=== PATIENT | female | born 1990 | race Two or more races ===

== ENCOUNTER 2021-02-09 13:57 | Inpatient (IN) | payer OTHER ==
[~2021-02-09] VITALS: Ht 152.4 cm; Wt 75.6 kg
[2021-02-09 14:49] LABS: Basophils # (auto) 0.1 10 ^3/uL (0-0.2); Basophils % (auto) 0.5 % (0.0-2.0); Eosinophils # (auto) 0 10 ^3/uL (0-0.8); Eosinophils % (auto) 0.3 % (0.0-7.0); Hematocrit 35.5 % (36.0-46.0); Lymphocytes # (auto) 1.4 10 ^3/uL (0.4-5.4); Lymphocytes % (auto) 10.9 % (10.0-50.0); Mean Corpuscular Hemoglobin 30.9 pg (28.0-32.0); Mean Corpuscular Hgb Conc. 33.9 g/dL (32.0-36.0); Monocytes # (auto) 0.5 10 ^3/uL (0-1.3); Monocytes % (auto) 3.6 % (0.0-12.0); Neutrophils # (auto) 10.7 10 ^3/uL (1.6-8.6); Neutrophils % (auto) 84.7 % (37.0-80.0); Red Cell Distribution Width 12.9 % (11.8-14.3); White Blood Cell 12.6 10^3/uL (4.4-10.8)
[2021-02-09 15:05] LABS: Albumin 3.8 g/dL (3.4-5.0); BUN/Creatinine Ratio 26.2; Calcium 8.8 mg/dL (8.5-10.1)
[2021-02-09 15:07] LABS: Bilirubin, Total 0.3 mg/dL (0.2-1.0); Total Protein 6.9 g/dL (6.4-8.2)
[2021-02-09] MEDS ORDERED: SODIUM CHLORIDE 0.9% 500 ML IV ONE (16:15)
[2021-02-09] MEDS ORDERED: NEOSTIGMINE 1 MG/ML INJ (10mg/10ML VIAL) ONE (17:39)
[2021-02-09] MEDS ORDERED: ONDANSETRON HCL 4 MG/2 ML VIAL ONE (17:39)
[2021-02-09] MEDS ORDERED: HYDROmorphone HCL 2 MG/ML VL ONE (17:39)
[2021-02-09] MEDS ORDERED: ETOMIDATE (2MG/ML) 20ML VIAL IV ONE (17:39)
[2021-02-09] MEDS ORDERED: fentaNYL CITRATE 100 MCG/2 ML VL ONE (17:39)
[2021-02-09] MEDS ORDERED: MIDAZOLAM HCL 2MG/2ML 2ml VIAL (1mg/ml) ONE (17:39)
[2021-02-09] MEDS ORDERED: ROCURONIUM 10MG/ML 10ML VIAL IV ONE (17:39)
[2021-02-09 17:40] LABS: Urine Bacteria FEW /hpf (None Seen); Urine Blood Negative /uL (Negative); Urine Hyaline Cast FEW /lpf (0 - 2); Urine Mucus FEW (None Seen); Urine Specific Gravity 1.022 (1.001-1.035); Urine WBC 3 /hpf (0 - 5)
[2021-02-09] MEDS ORDERED: GLYCOPYRROLATE 0.2 MG/ML 1ML VIAL ONE (17:40)
[2021-02-09] MEDS ORDERED: ceFAZolin 1GM/50ML 100 ML IV ONE (17:45)
[2021-02-09 17:50] LABS: INR 1.06 (0.9-1.15); Partial Thromboplastin Time < 20.0 sec (23.6-33.0)
[2021-02-09] MEDS ORDERED: STERILE WATER ONE (18:01)
[2021-02-09] MEDS ORDERED: DexAMETHasone SOD PHOS 10MG/1ML VIAL INJ ONE (18:25)
[2021-02-09] MEDS ORDERED: METOCLOPRAMIDE HCL 5MG/ml INJ 2ml VIAL IV PRN (18:30)
[2021-02-09] MEDS ORDERED: MORPHINE SULFATE 4 MG/ML SYR/VIAL IV PRN (18:30)
[2021-02-09] MEDS ORDERED: HYDROmorphone HCL 2 MG/ML VL IV PRN (18:30)
[2021-02-09] MEDS ORDERED: POVIDONE IODINE 10 % TOPICAL OINT 30GM TOP ONE (18:35)
[2021-02-09] MEDS ORDERED: HYDROcodone-ACET 5/325MG TAB PO PRN (19:30)
[2021-02-09] MEDS ORDERED: ONDANSETRON HCL 4 MG/2 ML VIAL IV PRN (19:30)
[2021-02-09] MEDS: METOCLOPRAMIDE HCL 5MG/ml INJ 2ml VIAL IV SCH (20:55)
[2021-02-09] MEDS: D5W/SOD CHL 0.45%/KCL 20MEQ 1,000 ML IV SCH (20:56)
[2021-02-09 21:57] LABS: Basophils # (auto) 0 10 ^3/uL (0-0.2); Eosinophils # (auto) 0 10 ^3/uL (0-0.8); Hematocrit 31.5 % (36.0-46.0); Hemoglobin 10.7 g/dL (12.2-16.2); Lymphocytes # (auto) 0.3 10 ^3/uL (0.4-5.4); Lymphocytes % (auto) 1.8 % (10.0-50.0); Mean Corpuscular Volume 91.2 fL (80.0-100.0); Monocytes # (auto) 0.1 10 ^3/uL (0-1.3); Monocytes % (auto) 0.7 % (0.0-12.0); Neutrophils # (auto) 16.2 10 ^3/uL (1.6-8.6); Neutrophils % (auto) 97.5 % (37.0-80.0); Red Blood Cells 3.45 10^6/uL (4.0-5.20); Red Cell Distribution Width 12.9 % (11.8-14.3); White Blood Cell 16.7 10^3/uL (4.4-10.8)
[2021-02-09] MEDS: MORPHINE SULFATE INJECTION 2 MG/ML SYRG IV PRN (22:48)
[2021-02-10] MEDS ORDERED: HYDROmorphone HCL 2 MG/ML VL IV ONE
[2021-02-10] MEDS: MORPHINE SULFATE INJECTION 2 MG/ML SYRG IV PRN ×2 (03:04→08:25)
[2021-02-10 05:08] VITALS: BP 110/59
[2021-02-10] MEDS: METOCLOPRAMIDE HCL 5MG/ml INJ 2ml VIAL IV SCH ×3 (06:11→22:47)
[2021-02-10] MEDS: D5W/SOD CHL 0.45%/KCL 20MEQ 1,000 ML IV SCH ×3 (07:04→21:27)
[2021-02-10] MEDS ORDERED: ACETAMINOPHEN 500 MG TAB PO PRN (07:45)
[2021-02-10] MEDS ORDERED: BISACODYL 10 MG RECT SUPP PR PRN (07:45)
[2021-02-10] MEDS ORDERED: ONDANSETRON HCL 4 MG/2 ML VIAL IV PRN (07:45)
[2021-02-10] MEDS ORDERED: RHO (D) IMMUNE GLOBULIN 300 MCG INJ IM PRN (07:45)
[2021-02-10] MEDS ORDERED: DOCUSATE SOD 100 MG CAP PO PRN (07:45)
[2021-02-10 08:17] LABS: Basophils # (auto) 0 10 ^3/uL (0-0.2); Basophils % (auto) 0.2 % (0.0-2.0); Eosinophils # (auto) 0 10 ^3/uL (0-0.8); Hematocrit 27.7 % (36.0-46.0); Hemoglobin 9.9 g/dL (12.2-16.2); Lymphocytes # (auto) 0.9 10 ^3/uL (0.4-5.4); Lymphocytes % (auto) 8.1 % (10.0-50.0); Mean Corpuscular Hemoglobin 32.1 pg (28.0-32.0); Mean Corpuscular Hgb Conc. 35.7 g/dL (32.0-36.0); Mean Corpuscular Volume 90.1 fL (80.0-100.0); Monocytes # (auto) 0.7 10 ^3/uL (0-1.3); Monocytes % (auto) 6.3 % (0.0-12.0); Neutrophils # (auto) 9.6 10 ^3/uL (1.6-8.6); Neutrophils % (auto) 85.4 % (37.0-80.0); Red Blood Cells 3.07 10^6/uL (4.0-5.20); Red Cell Distribution Width 13.3 % (11.8-14.3); White Blood Cell 11.2 10^3/uL (4.4-10.8)
[2021-02-10] MEDS: DOCUSATE CALCIUM 240 MG CAP PO SCH (08:23)
[2021-02-10] MEDS: PANTOPRAZOLE 40 MG/10 ML VIAL INJ IV SCH (08:23)
[2021-02-10] MEDS: cefTRIAXone 1GM/50ML D5W 50 ML IV SCH (08:23)
[2021-02-10] MEDS ORDERED: KETOROLAC TROMETH 30 MG/ML 1ML VIAL IV PRN (08:45)
[2021-02-10] MEDS: SIMETHICONE 80 MG CHEWABLE TABLET PO SCH ×3 (08:48→22:47)
[2021-02-10] MEDS: HYDROcodone-ACET 5/325MG TAB PO PRN ×2 (18:10→22:48)
[2021-02-10 22:00] VITALS: BP 112/71
[2021-02-11 05:05] VITALS: BP 104/59
[2021-02-11] MEDS: HYDROcodone-ACET 5/325MG TAB PO PRN ×2 (05:26→09:44)
[2021-02-11] MEDS: METOCLOPRAMIDE HCL 5MG/ml INJ 2ml VIAL IV SCH (05:26)
[2021-02-11] MEDS: SIMETHICONE 80 MG CHEWABLE TABLET PO SCH (05:26)
[2021-02-11] MEDS ORDERED: HYDR-4902 PO (07:43)
[2021-02-11] MEDS ORDERED: DOCU-94 PO (07:43)
[2021-02-11] MEDS ORDERED: IBUP800T27 PO (07:43)
[2021-02-11] MEDS ORDERED: FER325T PO (07:51)
[2021-02-11 09:00] VITALS: BP 107/59
[2021-02-11] MEDS: cefTRIAXone 1GM/50ML D5W 50 ML IV SCH (09:24)
[2021-02-11] MEDS: PANTOPRAZOLE 40 MG/10 ML VIAL INJ IV SCH (09:25)
[2021-02-11] MEDS: DOCUSATE CALCIUM 240 MG CAP PO SCH (09:25)
[2021-02-11 11:06] VITALS: BP 107/59
[2021-02-11 13:00] VITALS: BP 110/69
== END 2021-02-11 12:30 | disposition home or self-care (01) | DRG 817 ==
LOC: ER 13:57 → OVERFLOW 17:53 → WEST WING 20:15
PROVIDERS: ADMIT Obstetrics & Gynecology Obstetrics; ATTEND Obstetrics & Gynecology Obstetrics
PROC: 0UB50ZZ Excision of Right Fallopian Tube, Open Approach (ICD-10-PCS; 2021-02-09)
PROC: 0DCW0ZZ Extirpation of Matter from Peritoneum, Open Approach (ICD-10-PCS; 2021-02-09)
PROC: 30233N1 Transfusion of Nonautologous Red Blood Cells into Peripheral Vein, Percutaneous Approach (ICD-10-PCS; 2021-02-09)
PROC: 10T20ZZ Resection of Products of Conception, Ectopic, Open Approach (ICD-10-PCS; principal; 2021-02-09 18:04)
DX: O00.101 Right tubal pregnancy without intrauterine pregnancy (principal); K66.1 Hemoperitoneum; O08.89 Other complications following an ectopic and molar pregnancy; Z20.822 Contact with and (suspected) exposure to COVID-19; Z3A.11 11 weeks gestation of pregnancy
CPT/HCPCS: 36415; 76801; 76817; 80053; 81001; 84702; 85025; 85610; 85730; 86850; 86900; 86901; 86920; 87426; 96360; 99291; C9113; G0378; J0690; J0696; J1100; J1885; J2250; J2405